=== PATIENT | male | born 1985 | race Caucasian/White ===

== ENCOUNTER 2022-05-15 16:59 | Emergency (ER) | payer MEDICARE, MEDICAID, SELFPAY ==
[2022-05-15 17:05] VITALS: BP 158/100; PULSE 86; O2SAT 99
--- NOTE | 2022-05-15 17:08 | ECG_ITS ---
Test Reason : CHEST PAIN Blood Pressure : / mmHG Vent. Rate : 066 BPM Atrial Rate : 066 BPM P-R Int : 150 ms QRS Dur : 090 ms QT Int : 376 ms P-R-T Axes : 066 049 068 degrees QTc Int : 394 ms Normal sinus rhythm Normal ECG No previous ECGs available Referred By: Generic ED Physician Electronically Signed By:Willam Vogel
[2022-05-15 17:21] VITALS: BP 131/77; PULSE 71; RESP 18; TEMP 36.6; O2SAT 99; BMI 24.4
[2022-05-15 17:38] LABS: Basophils Percent Auto 0.5 % (0-2); Eosinophils Percent Auto 0.4 % (0-4); Hematocrit 32.2 % (42.0-52.0); Hemoglobin 10.5 g/dl (14.0-18.0); Imm Gran Abs Auto 0.01 X10*3/uL (0.00-0.03); Imm Gran Pct Auto 0.2 % (0.0-0.4); Lymphocytes Absolute Auto 1.2 X10*3/uL (1.2-4.9); Lymphocytes Percent Auto 20.6 % (20-40); MANUAL DIFF FLAG NO; Mean Corpuscular HGB Conc 32.6 g/dl (31.0-36.0); Mean Corpuscular Hemoglobin 28.5 pg (27.0-33.0); Mean Corpuscular Volume 87.5 fL (80.0-98.0); Mean Platelet Volume 8.9 fL (9.4-12.4); Monocytes Absolute Auto 0.5 X10*3/uL (0.1-1.2); Monocytes Percent Auto 9.1 % (2-11); Neutrophils Absolute Auto 3.9 x10*3/uL (2.0-8.3); Neutrophils Percent Auto 69.2 % (45-73); Platelet Count 314 X10*3/uL (160-400); Red Blood Count 3.68 X10*6/uL (4.60-5.80); Red Cell Distribution Width 14.5 % (11.0-16.0); White Blood Count 5.7 X10*3/uL (4.8-10.8)
[2022-05-15 17:57] LABS: Alanine Aminotransferase 12 U/L (0-40); Albumin Level 4.3 g/dL (3.5-5.0); Alkaline Phosphatase 67 U/L (39-117); Anion Gap 9 (12-20); Aspartate Amino Transferase 13 U/L (5-37); Blood Urea Nitrogen 13 mg/dL (9-16); Calcium 9.1 mg/dL (8.4-10.2); Carbon Dioxide 27 mmol/L (22-29); Chloride 106 mmol/L (96-108); Creatinine Clr Calc Pharmacy 99.3; Estimated Glomerular Filt Rate > 60; Glucose Random 98 mg/dL (60-115); Potassium 4.2 mmol/L (3.3-5.1); Sodium 138 mmol/L (135-145); Total Protein 7.1 g/dL (6.5-8.0)
[2022-05-15 18:00] LABS: Troponin-I High Sensitivity < 3.5 ng/L (<3.5-35.0)
--- NOTE | 2022-05-15 21:24 | ED_ITS ---
HPI - Dizziness General Chief Complaint: Dizziness Stated Complaint: dizziness Time Seen by Provider: 05/15/22 21:24 Source: patient Mode of arrival: ambulatory Limitations: no limitations History of Present Illness HPI Narrative: Patient been feeling dizzy feel like things spinning around had poor oral intake but was in the house with the condition on no nausea off balanchad similar complaints in the past Related Data Previous Rx's Medication Instructions Recorded meclizine 25 mg tablet 25 mg PO TID PRN dizziness #20 tabs 05/15/22 Allergies Allergy/AdvReac Type Severity Reaction Status Date / Time No Known Allergies Allergy Verified 05/15/22 17:05 Review of Systems Review of Systems: Yes all other systems are reviewed and are negative [facility] Social History Social History Advance Directives: No Advance Directives Information Provided: No Physical Exam Vital Signs: Vital Signs: Last Vital Signs Temp 97.9 F 05/15/22 17:21 Pulse 71 05/15/22 17:21 Resp 18 05/15/22 17:21 BP 131/77 05/15/22 17:21 Pulse Ox 99 05/15/22 17:21 O2 Del Method 05/15/22 17:21 BMI result Body Mass Index 24.4 Appearance: Alert. Oriented X3. No acute distress. Eyes: PERRLA, No Nystagmus ENT: Pharynx normal. Oral Mucosa moist Neck: Normal inspection. Neck supple. CVS: Normal heart rate and rhythm. Pulses normal. Respiratory: No respiratory distress. Equal air entry bilateral, no wheezing/rales/rhonchi Abdomen: Soft and nontender. Bowel sounds are present, no mass palpable, no CVA tenderness Skin: Skin warm and dry. Normal skin color. Normal skin turgor. Extremities: No lower extremity edema. No calf tenderness Neuro: Oriented X 3. No motor deficit. No sensory deficit.No cerebellar signs , cranial nerves II-XII intact MDM - Dizziness MDM Narrative Medical decision making narrative: Patient felt better after meclizine ambulatory in the ER discharge patient home Lab Data Attestation: I reviewed the patient's lab results. Result diagrams: 05/15/22 17:28 05/15/22 17:28 Labs: Lab Results 05/15/22 05/15/22 05/15/22 Range/Units 17:28 17:28 17:28 WBC 5.7 (4.8-10.8) X10*3/uL RBC 3.68 L (4.60-5.80) X10*6/uL Hgb 10.5 L (14.0-18.0) g/dl Hct 32.2 L (42.0-52.0) % MCV 87.5 (80.0-98.0) fL MCH 28.5 (27.0-33.0) pg MCHC 32.6 (31.0-36.0) g/dl RDW 14.5 (11.0-16.0) % Plt Count 314 (160-400) X10*3/uL MPV 8.9 L (9.4-12.4) fL Immature Gran % (Auto) 0.2 (0.0-0.4) % Neut % (Auto) 69.2 (45-73) % Lymph % (Auto) 20.6 (20-40) % Thurston % (Auto) 9.1 (2-11) % Eos % (Auto) 0.4 (0-4) % Baso % (Auto) 0.5 (0-2) % Lymph # (Auto) 1.2 (1.2-4.9) X10*3/uL Thurston # (Auto) 0.5 (0.1-1.2) X10*3/uL Eos # (Auto) 0.0 (0.0-0.4) X10*3/uL Baso # (Auto) 0.0 (0.0-0.2) X10*3/uL Abs Immat Gran (auto) 0.01 (0.00-0.03) X10*3/uL Absolute Neuts (auto) 3.9 (2.0-8.3) x10*3/uL Absolute Nucleated RBC 0.000 (0.0-0.012) X10*3/uL Nucleated RBC % (auto) 0.0 (0.0-0.2) /100WBC Sodium 138 (135-145) mmol/L Potassium 4.2 (3.3-5.1) mmol/L Chloride 106 (96-108) mmol/L Carbon Dioxide 27 (22-29) mmol/L Anion Gap 9 L (12-20) BUN 13 (9-16) mg/dL Creatinine 1.15 (0.5-1.4) mg/dL Estim Creat Clear Calc 99.3 Estimated GFR > 60 Random Glucose 98 (60-115) mg/dL Calcium 9.1 (8.4-10.2) mg/dL Total Bilirubin 1.0 (0.0-1.0) mg/dL AST 13 (5-37) U/L ALT 12 (0-40) U/L Alkaline Phosphatase 67 (39-117) U/L Troponin I High Sens < 3.5 (<3.5-35.0) ng/L Total Protein 7.1 (6.5-8.0) g/dL Albumin 4.3 (3.5-5.0) g/dL Discharge Plan Discharge Clinical Impression: Benign paroxysmal positional vertigo Patient Disposition: Home, Self-Care Instructions: Benign Paroxysmal Positional Vertigo (ED) Additional Instructions: Care as advised Take medication for severe dizziness Follow with PCP Prescriptions: New meclizine 25 mg tablet 25 mg PO TID PRN (Reason: dizziness) Qty: 20 0RF Interventions: ED Discharge Assessment Last Done: 05/15/22 22:41 Discharge Date/Time: 05/15/22 22:42
[2022-05-15] MEDS: Meclizine HCl 25 MG TABLET 50 MG PO (21:49)
--- NOTE | 2022-05-15 21:51 | PC.NURSE ---
pt a&ox3, vss, medicated per provider order, given yogesh kelby and water. pt reports still feeling dizzy.
== END 2022-05-15 22:42 | disposition home or self-care (01) ==
PROVIDERS: Emergency Provider Internal Medicine
DX: H81.13 Benign paroxysmal vertigo, bilateral (principal); R07.89 Other chest pain; Z79.899 Other long term (current) drug therapy
CPT/HCPCS: 36415; 80053; 84484; 85025; 93005; 99283

== ENCOUNTER 2022-05-21 04:26 | Inpatient (IN) | payer MEDICARE, MEDICAID, SELFPAY ==
--- NOTE | 2022-05-21 | EEG_ITS ---
This is a 16-channel EEG with an EKG lead. The patient is reported awake during the tracing. Background EEG rhythm during initial part of the tracing is low amplitude fast. The patient frequently transitioned into generalize theta range medium amplitude rhythm suggestive of drowsiness. No definite sharp wave spikes or paroxysmal tendency noted. Photic stimulation does not produce any significant driving. Hyperventilation is not performed. Cardiac lead does not reveal any significant abnormality. IMPRESSION: No significant abnormality noted to suggest epilepsy in this tracing. MD BRUNA Mays/GINGER / [phone]
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
[2022-05-21 04:36] VITALS: BP 135/85; PULSE 85; RESP 17; TEMP 36.2; O2SAT 100; BMI 23.7
[2022-05-21 05:00] LABS: Appearance Urine CLEAR; Color Urine YELLOW; Glucose Urine UA NEG (NEG); Leukocyte Esterase Urine NEG (NEG); Nitrite Urine NEG (NEG); Specific Gravity - Urine >= 1.030 (1.005-1.025); Urine Blood NEG (NEG); Urine Ketones 5 MG/DL (NEG); Urine Protein NEG (NEG-TRACE)
[2022-05-21 05:15] LABS: Amphetamine Screen Urine Not Detected (Not Detect); Barbiturates, Urine Not Detected (Not Detect); Benzodiazepines Screen Urine Not Detected (Not Detect); COVID-19 Test Negative (Negative); Cannabinoid Screen Urine Not Detected (Not Detect); Cocaine Screen Urine Not Detected (Not Detect); Fentanyl, urine Not Detected (Not Detect); Opiate Screen Urine Not Detected (Not Detect); Phencyclidine Screen Urine Not Detected (Not Detect)
[2022-05-21 05:17] LABS: MANUAL DIFF FLAG NO
[2022-05-21 05:18] LABS: Basophils Absolute Auto 0.1 X10*3/uL (0.0-0.2); Basophils Percent Auto 0.7 % (0-2); Eosinophils Absolute Auto 0.1 X10*3/uL (0.0-0.4); Eosinophils Percent Auto 0.7 % (0-4); Hematocrit 35.7 % (42.0-52.0); Hemoglobin 11.5 g/dl (14.0-18.0); Imm Gran Abs Auto 0.01 X10*3/uL (0.00-0.03); Imm Gran Pct Auto 0.1 % (0.0-0.4); Lymphocytes Absolute Auto 1.4 X10*3/uL (1.2-4.9); Lymphocytes Percent Auto 20.9 % (20-40); Mean Corpuscular HGB Conc 32.2 g/dl (31.0-36.0); Mean Corpuscular Volume 89.9 fL (80.0-98.0); Mean Platelet Volume 8.9 fL (9.4-12.4); Monocytes Absolute Auto 0.6 X10*3/uL (0.1-1.2); Monocytes Percent Auto 8.5 % (2-11); Neutrophils Absolute Auto 4.6 x10*3/uL (2.0-8.3); Neutrophils Percent Auto 69.1 % (45-73); Platelet Count 407 X10*3/uL (160-400); Red Blood Count 3.97 X10*6/uL (4.60-5.80); Red Cell Distribution Width 14.5 % (11.0-16.0); White Blood Count 6.7 X10*3/uL (4.8-10.8)
[2022-05-21 05:44] LABS: Acetaminophen LAB < 1 mcg/mL (<30); Alanine Aminotransferase 13 U/L (0-40); Albumin Level 4.9 g/dL (3.5-5.0); Alkaline Phosphatase 87 U/L (39-117); Anion Gap 12 (12-20); Aspartate Amino Transferase 21 U/L (5-37); Bilirubin Total 0.5 mg/dL (0.0-1.0); Blood Urea Nitrogen 20 mg/dL (9-16); Calcium 9.2 mg/dL (8.4-10.2); Carbon Dioxide 24 mmol/L (22-29); Chloride 109 mmol/L (96-108); Creatinine Clr Calc Pharmacy 87.1; Estimated Glomerular Filt Rate > 60; Ethanol < 10 mg/dL; Glucose Random 79 mg/dL (60-115); Potassium 4.3 mmol/L (3.3-5.1); Salicylate < 5.0 mg/dL (15-30); Sodium 141 mmol/L (135-145); Total Protein 8.5 g/dL (6.5-8.0)
--- NOTE | 2022-05-21 06:00 | PC.NURSE ---
[facility] referral completed/confirmed/pending ETA, med rec completed/pending provider's approval, VSS, behavior non concerning, will continue to monitor.
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
--- NOTE | 2022-05-21 07:40 | PC.NURSE ---
patient appears to remain asleep at present patient appears in no distress.
[2022-05-21 15:00] VITALS: BP 124/76; PULSE 59; RESP 16; TEMP 36.6; O2SAT 100
--- NOTE | 2022-05-21 15:18 | PC.NURSE ---
At approximately 15:00, PT pressed the emergency call button in her room. Staff immediately responded. Within seconds of TW and other staff arriving, PT free-fell to the ground and hit her head on the floor. PT had two seizures, each lasting about a minute each. PT turned on her side and head protected with a pillow. Staff physically supported PT in order to prevent her from injuring herself. Two sets of vitals taken. PT remained after the incident for emotional support.
[2022-05-21] MEDS: LORazepam 2 MG/ML VIAL IM (15:45)
--- NOTE | 2022-05-21 15:46 | P.EN_ITS ---
Event Note Date of Service: 05/21/22 Event Note: pt had seizure on unit and staff witness patient fall to the ground and hit her head; pt had another seizure 3 minutes later. Director Hospice Operations contacted and ordered ativan 2mg IM Pt had another seizure a few minutes later, however this time, she was able to follow directions during seizure and also, patients right arm was not tense. Rapid response called who and MD thought pseudoseizure. Pt says she has hx of seizure disorder and used to be on anti-epileptics but has not been taking them. concern for etoh withdrawal? sent for stat head CT, EEG, neuro consult; ordered prolactin level
--- NOTE | 2022-05-21 15:46 | P.EN_ITS ---
Event Note Date of Service: 05/21/22 Event Note: LEVEL [employer]IAL INSPECTOR AND TESTER called for convulsions. patient was seen on ground, arms and legs adducted and extended with low amplitude tremors as well as rapid blinking. upon entering the room patient turned head and made eye contact with me, then turned back down and continued convulsing. not consistent with epileptic seizure. 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
[2022-05-21 15:47] LABS: Glucose, Whole Blood 118 mg/dL (60-115)
--- NOTE | 2022-05-21 15:47 | PC.NURSE ---
Pt had a witnessed seizure at 1505. Pt placed on their side and all hard objects moved to protect patient. Seizure lasted for approximately 1 minute. Pt verbally responsive to staff after seizure. Pt received Ativan 1mg IM to Left Deltoid at 1520. About two minutes later Patient experienced a second seizure which lasted for approximately a minute. Rapid Response called. Pt received an additional dose of Ativan 1mg to Right deltoid at 1530.
[2022-05-21 17:12] VITALS: BP 135/73; PULSE 62; RESP 16; TEMP 37.2
[2022-05-21 18:02] VITALS: BMI 23.8
[2022-05-21] MEDS: hydrOXYzine HCL 25 MG TABLET PO (22:12)
[2022-05-21] MEDS: Acetaminophen 325 MG TABLET 650 MG PO (22:13)
[2022-05-21] MEDS: traZODone HCL 50 MG TABLET PO (22:13)
[2022-05-22 06:00] VITALS: BP 127/72; PULSE 60; RESP 16; TEMP 36.5; O2SAT 100
[2022-05-22 08:23] LABS: Estimated Average Glucose 94 mg/dL; Hemoglobin A1c % 4.9 %
[2022-05-22 08:53] LABS: Cholesterol 125 mg/dL; HDL Cholesterol 40 mg/dL; LDL Cholesterol Calculated 69 mg/dl; Magnesium 1.8 mg/dL (1.6-2.6); Triglycerides 81 mg/dL
[2022-05-22 09:14] LABS: Free T4 (Free Thyroxine) 0.93 ng/dL (0.71-1.85); Thyroid Stimulating Hormone 0.66 uIU/mL (0.32-4.0)
[2022-05-22 09:28] LABS: Folate 9.7 ng/mL (> or = 4.0); Vitamin B12 309 pg/mL (200-900)
[2022-05-22] MEDS: LORazepam 1 MG TABLET PO ×3 (10:02→22:26)
[2022-05-22] MEDS: Spironolactone 25 MG TABLET 100 MG PO (10:05)
[2022-05-22] MEDS: buPROPion HCl XL 300 MG TAB.ER.24H PO (10:05)
[2022-05-22] MEDS: estradioL 0.5 MG TABLET 2 MG PO (10:05)
--- NOTE | 2022-05-22 11:21 | P.HPPS_ITS ---
HPI Date of Service: 05/22/22 Chief Complaint: Paranoia Hallucinations Sources of Information: patient interviewed, chart reviewed and crisis/core team assessment reviewed HPI Subjective Notes: Islas Warning and Conditional Voluntary Narrative: Patient is a 36-year-old trans gender person, who goes by the name Blank; she has an and intellectual disability, history with DDS and fragile X syndrome; her psychiatric history is currently unclear but not previously known to have psychotic symptoms. Blank presents for disorganized behavior in the community. Patient is a poor historian as she is continually having nonepileptic seizures on the unit is selectively mute. When arriving to floor yesterday, it was was unclear if this was a nonepileptic as patient fell from the chair and hit her head during a staff witnessed seizure; after which, patient nodded yes that she has a history of epilepsy and has been on anti epileptic medications. However during her next seizure several minutes later, patient was communicating with staff during the seizure and it was concluded they are nonepileptic. Rapid response called also diagnosed as nonepileptic seizure. Patient has not provided much history otherwise. EEG ordered Prolactin level ordered Neuro consult ordered Today on the unit, show card writer witness patient having a nonepileptic seizure during which time she communicated with this show card writer, saying uh huh [yes] and shaking her head yes, while having the seizure, to show card writer's question of is the seizure painful. Also while having the seizure patient was willing to follow show card writer's directions and it took a deep breath, held it for 4 seconds and then let it out slowly; patient repeated this to other times. She agreed to Haldol 5 mg Ativan 2 mg and Benadryl to help her calm down. Crisis no reports that patient was brought to the ED, found wandering the neighborhood, knocking on neighbor's doors and saying that someone is trying to cut off her boyfriend's feet. Whom she reported to staff that she got a phone call from her boyfriend that he was at a greenhouse and afraid someone was going to cut his feet so she went to the greenhouse looking for him. She said she saw him in the house screaming but adult health clinical nurse specialist of the house made her leave. Patient did not have insight to understand that her boyfriend was in his own home at this time. Some mention of auditory and visual hallucinations. Past Psychiatric History: hx of [facility] assessments History of nonepileptic seizures with neurological workup and confirmation, per mother Fragile X syndrome Intellectual disability ( Verbal 63 and performance of 56 ) Medical Evaluation Reviewed: Yes [facility] Medical History (Updated 05/22/22 @ 14:00 by Tres Strange MD) Fragile X syndrome Intellectual disability Psychogenic nonepileptic seizure Family History: Family history of depression Social History: Estranged from her mother due to transgender status Currently lives in an independent shared living space with her licensed occupational therapist Neonjuan f (per crisis note); stable housing Grew up in [place] Substance History: unclear Trauma History: Likely Diagnostics Vital Signs (24Hr): Vital Signs - 24 hr 05/21/22 15:00 05/21/22 17:12 Temperature 97.9 F 98.9 F Pulse Rate 59 62 Respiratory Rate 16 16 Blood Pressure 124/76 135/73 Pulse Oximetry 100 Oxygen Delivery Method Room Air BMI result Body Mass Index 23.8 Labs Results: 05/21/22 05:10 05/21/22 05:10 Labs: Laboratory Results - last 48 hr 05/21/22 05/21/22 05/21/22 04:49 04:49 04:49 WBC RBC Hgb Hct MCV MCH MCHC RDW Plt Count MPV Immature Gran % (Auto) Neut % (Auto) Lymph % (Auto) [place] % (Auto) Eos % (Auto) Baso % (Auto) Lymph # (Auto) [place] # (Auto) Eos # (Auto) Baso # (Auto) Abs Immat Gran (auto) Absolute Neuts (auto) Absolute Nucleated RBC Nucleated RBC % (auto) Sodium Potassium Chloride Carbon Dioxide Anion Gap BUN Creatinine Estim Creat Clear Calc Estimated GFR POC Glucose Random Glucose Estimat Average Glucose Hemoglobin A1c % Calcium Magnesium Total Bilirubin AST ALT Alkaline Phosphatase Total Protein Albumin Triglycerides Cholesterol LDL Cholesterol, Calc HDL Cholesterol Vitamin B12 Folate TSH Free T4 Urine Color YELLOW Urine Appearance CLEAR Urine pH 6.0 Ur Specific [place] >= 1.030 H Urine Protein NEG Urine Glucose (UA) NEG Urine Ketones 5 Urine Blood NEG Urine Nitrite NEG Ur Leukocyte Esterase NEG Salicylates Urine Opiates Screen Not Detected Urine Fentanyl Screen Not Detected Acetaminophen Ur Barbiturates Screen Not Detected Ur Phencyclidine Scrn Not Detected Ur Amphetamines Screen Not Detected U Benzodiazepines Scrn Not Detected Urine Cocaine Screen Not Detected U Marijuana (THC) Screen Not Detected Ethyl Alcohol COVID-19 (MAX) Negative COVID-19 Clin Com See Note 05/21/22 05/21/22 05/21/22 05:10 05:10 05:10 WBC 6.7 RBC 3.97 L Hgb 11.5 L Hct 35.7 L MCV 89.9 MCH 29.0 MCHC 32.2 RDW 14.5 Plt Count 407 H D MPV 8.9 L Immature Gran % (Auto) 0.1 Neut % (Auto) 69.1 Lymph % (Auto) 20.9 [place] % (Auto) 8.5 Eos % (Auto) 0.7 Baso % (Auto) 0.7 Lymph # (Auto) 1.4 [place] # (Auto) 0.6 Eos # (Auto) 0.1 Baso # (Auto) 0.1 Abs Immat Gran (auto) 0.01 Absolute Neuts (auto) 4.6 Absolute Nucleated RBC 0.000 Nucleated RBC % (auto) 0.0 Sodium 141 Potassium 4.3 Chloride 109 H Carbon Dioxide 24 Anion Gap 12 BUN 20 H D Creatinine 1.35 Estim Creat Clear Calc 87.1 Estimated GFR > 60 POC Glucose Random Glucose 79 Estimat Average Glucose Hemoglobin A1c % Calcium 9.2 Magnesium Total Bilirubin 0.5 AST 21 D ALT 13 Alkaline Phosphatase 87 D Total Protein 8.5 H Albumin 4.9 Triglycerides Cholesterol LDL Cholesterol, Calc HDL Cholesterol Vitamin B12 Folate TSH Free T4 Urine Color Urine Appearance Urine pH Ur Specific [place] Urine Protein Urine Glucose (UA) Urine Ketones Urine Blood Urine Nitrite Ur Leukocyte Esterase Salicylates < 5.0 L Urine Opiates Screen Urine Fentanyl Screen Acetaminophen < 1 Ur Barbiturates Screen Ur Phencyclidine Scrn Ur Amphetamines Screen U Benzodiazepines Scrn Urine Cocaine Screen U Marijuana (THC) Screen Ethyl Alcohol < 10 Cancelled COVID-19 (MAX) COVID-19 Clin Com 05/21/22 05/22/22 05/22/22 15:22 07:42 07:42 WBC RBC Hgb Hct MCV MCH MCHC RDW Plt Count MPV Immature Gran % (Auto) Neut % (Auto) Lymph % (Auto) [place] % (Auto) Eos % (Auto) Baso % (Auto) Lymph # (Auto) [place] # (Auto) Eos # (Auto) Baso # (Auto) Abs Immat Gran (auto) Absolute Neuts (auto) Absolute Nucleated RBC Nucleated RBC % (auto) Sodium Potassium Chloride Carbon Dioxide Anion Gap BUN Creatinine Estim Creat Clear Calc Estimated GFR POC Glucose 118 H Random Glucose Estimat Average Glucose 94 Hemoglobin A1c % 4.9 Calcium Magnesium 1.8 Total Bilirubin AST ALT Alkaline Phosphatase Total Protein Albumin Triglycerides 81 Cholesterol 125 LDL Cholesterol, Calc 69 HDL Cholesterol 40 Vitamin B12 Folate TSH 0.66 Free T4 0.93 Urine Color Urine Appearance Urine pH Ur Specific [place] Urine Protein Urine Glucose (UA) Urine Ketones Urine Blood Urine Nitrite Ur Leukocyte Esterase Salicylates Urine Opiates Screen Urine Fentanyl Screen Acetaminophen Ur Barbiturates Screen Ur Phencyclidine Scrn Ur Amphetamines Screen U Benzodiazepines Scrn Urine Cocaine Screen U Marijuana (THC) Screen Ethyl Alcohol COVID-19 (MAX) COVID-19 [employer] Com 05/22/22 07:42 WBC RBC Hgb Hct MCV MCH MCHC RDW Plt Count MPV Immature Gran % (Auto) Neut % (Auto) Lymph % (Auto) [place] % (Auto) Eos % (Auto) Baso % (Auto) Lymph # (Auto) [place] # (Auto) Eos # (Auto) Baso # (Auto) Abs Immat Gran (auto) Absolute Neuts (auto) Absolute Nucleated RBC Nucleated RBC % (auto) Sodium Potassium Chloride Carbon Dioxide Anion Gap BUN Creatinine Estim Creat Clear Calc Estimated GFR POC Glucose Random Glucose Estimat Average Glucose Hemoglobin A1c % Calcium Magnesium Total Bilirubin AST ALT Alkaline Phosphatase Total Protein Albumin Triglycerides Cholesterol LDL Cholesterol, Calc HDL Cholesterol Vitamin B12 309 Folate 9.7 TSH Free T4 Urine Color Urine Appearance Urine pH Ur Specific [place] Urine Protein Urine Glucose (UA) Urine Ketones Urine Blood Urine Nitrite Ur Leukocyte Esterase Salicylates Urine Opiates Screen Urine Fentanyl Screen Acetaminophen Ur Barbiturates Screen Ur Phencyclidine Scrn Ur Amphetamines Screen U Benzodiazepines Scrn Urine Cocaine Screen U Marijuana (THC) Screen Ethyl Alcohol COVID-19 (MAX) COVID-19 Clin Com Imaging Radiology Impressions: ITS Impressions Head CT 05/21/22 16:12 IMPRESSION: No acute intracranial pathology. Meds/Allergies Meds Home Medications Medication Instructions Recorded Confirmed Type bupropion HCl 300 mg 24 hr tablet, 1 tab PO DAILY 05/21/22 05/21/22 History extended release estradiol 2 mg tablet 1 tab PO DAILY 05/21/22 05/21/22 History hydroxyzine pamoate 25 mg capsule 1 cap PO DAILY PRN Anxiety 05/21/22 05/21/22 History spironolactone 100 mg tablet 1 tab PO DAILY 05/21/22 05/21/22 History Allergies Allergies Allergy/AdvReac Type Severity Reaction Status Date / Time No Known Allergies Allergy Verified 05/15/22 17:05 Mental Status Exam Mental Status Exam Narrative: Pt is alert;; behavior frequent non-epileptic seizures; disheveled in hospital attire; mood is described as anxious and affect congruent; no eye contact; Speech is Selectively Mute; psychomotor agitation present in the form of nonepileptic seizures; thought process: Disorganized; Thought content disorganized, paranoid delusional content; cannot assess SI/HI. AVH reported; insight and judgment impaired. Assessment & Plan Assessment & Plan (1) Psychotic disorder: Status: Acute Code(s): F29 - Unspecified psychosis not due to a substance or known physiological condition (2) Fragile X syndrome: Status: Acute Code(s): Q99.2 - Fragile X chromosome (3) Intellectual disability: Status: Acute Code(s): F79 - Unspecified intellectual disabilities (4) Psychogenic nonepileptic seizure: Status: Acute Code(s): 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 Blank presents for disorganized behavior in the community. Patient a poor historian as continually having nonepileptic seizures on the unit is selectively mute (patient communicating with staff during seizure-episode). Crisis note reports that patient was brought to the ED, found wandering the neighborhood, knocking on neighbor's doors and saying that someone is trying to cut off her boyfriend's feet. Whom she reported to staff that she got a phone call from her boyfriend that he was at a greenhouse and afraid someone was going to cut his feet so she went to the greenhouse looking for him. She said she saw him in the house screaming but adult health clinical nurse specialist of the house m jad her leave. Patient did not have insight to understand that her boyfriend was in his own home at this time. Some mention of auditory and visual hallucinations. -admitted for disorganized behavior and new-onset psychotic symptoms in the community -patient hit head during pseudo seizure; head CT unremarkable -UDS negative PLAN: CV Currently on one-to-one since having pseudoseizures Gave Haldol 5, Ativan 2, Benadryl 50 for agitation Started Ativan 1 mg t.i.d. for now given agitation Hold Wellbutrin for now Consider antipsychotic/mood stabilizer Will gather collateral Patient educated on: diagnosis Informed Consent: understands Reason for continued inpatient stay Substantial Risk for: inability to function and rapid decompensation
[2022-05-22] MEDS: LORazepam 1 MG TABLET 2 MG PO (12:53)
[2022-05-22] MEDS: diphenhydrAMINE HCL 25 MG TABLET 50 MG PO (12:53)
[2022-05-22] MEDS: HaloperidoL 5 MG TABLET PO (12:53)
[2022-05-22] MEDS: hydrOXYzine HCL 25 MG TABLET PO ×3 (14:37→22:26)
[2022-05-22 15:51] LABS: Appearance Urine CLEAR; Color Urine YELLOW; Glucose Urine UA NEG (NEG); Leukocyte Esterase Urine NEG (NEG); Nitrite Urine NEG (NEG); Specific Gravity - Urine >= 1.030 (1.005-1.025); Urine Blood NEG (NEG); Urine Ketones NEG (NEG); Urine Protein NEG (NEG-TRACE)
[2022-05-22 16:03] LABS: Barbiturates, Urine Not Detected (Not Detect); Benzodiazepines Screen Urine Not Detected (Not Detect); Cannabinoid Screen Urine Not Detected (Not Detect); Cocaine Screen Urine Not Detected (Not Detect); Fentanyl, urine Not Detected (Not Detect); Opiate Screen Urine Not Detected (Not Detect); Phencyclidine Screen Urine Not Detected (Not Detect)
[2022-05-22 16:08] LABS: Amphetamine Screen Urine Not Detected (Not Detect)
[2022-05-22 16:34] LABS: RBC Urine 0-2 /HPF (0); WBC Urine 0-2 /HPF (0-4)
[2022-05-22 16:35] LABS: Mucus Urine 1+ /LPF
[2022-05-22 17:00] VITALS: BP 117/54; PULSE 70; TEMP 36.8
[2022-05-22] MEDS: risperiDONE 1 MG TABLET PO ×2 (19:07→22:26)
[2022-05-23 05:46] LABS: Prolactin 29.3 ng/mL (2.0-18.0)
[2022-05-23] MEDS: Spironolactone 25 MG TABLET 100 MG PO (08:49)
[2022-05-23] MEDS: estradioL 0.5 MG TABLET 2 MG PO (08:50)
[2022-05-23] MEDS: LORazepam 1 MG TABLET PO ×3 (08:50→20:32)
[2022-05-23] MEDS: risperiDONE 1 MG TABLET PO ×2 (08:50→20:32)
[2022-05-23] MEDS: hydrOXYzine HCL 25 MG TABLET PO ×3 (08:50→20:36)
[2022-05-23 09:10] VITALS: PULSE 73; RESP 16; TEMP 36.7; O2SAT 99
--- NOTE | 2022-05-23 10:37 | HO.PSYCHPN ---
Subjective Subjective Date of Service: 05/23/22 Reason For Visit: Paranoia Hallucinations Interim History: Patient lying in bed awake but sleepy, having recently gotten Ativan. She said she has feeling better but cannot articulate how so but feels that the medications have helped; denies any SI. Still concerned that her boyfriend's feet are going to be cut off. No nonepileptic seizures thus far today; discussed with patient getting off one-to-one and going to Q 5 minute checks which she felt was appropriate. Discussed with nursing staff who also agreed. Mental Status Exam Mental Status Exam Narrative: Pt is alert;; behavior more calm; non non-epileptic seizures; disheveled, in hospital attire; mood is described as better and affect sleepy,but brighter; limited eye contact; Speech is sparse; psychomotor retardation present; thought process, more goal oriented; Thought content disorganized, paranoid delusional content; denies SI/HI. AVH reported; insight and judgment impaired. Diagnostics Vital Signs (24Hr): Vital Signs - 24 hr 05/22/22 17:00 05/23/22 09:10 Temperature 98.2 F 98.1 F Pulse Rate 70 73 Respiratory Rate 16 Blood Pressure 117/54 L Pulse Oximetry 99 Oxygen Delivery Method Room Air BMI result Body Mass Index 23.8 Labs Results: 05/21/22 05:10 05/21/22 05:10 Labs: Laboratory Results - last 48 hr 05/21/22 05/21/22 05/22/22 15:22 16:45 07:42 POC Glucose 118 H Estimat Average Glucose 94 Hemoglobin A1c % 4.9 Magnesium Triglycerides Cholesterol LDL Cholesterol, Calc HDL Cholesterol Vitamin B12 Folate TSH Free T4 Prolactin 29.3 H Urine Color Urine Appearance Urine pH Ur Specific [place] Urine Protein Urine Glucose (UA) Urine Ketones Urine Blood Urine Nitrite Ur Leukocyte Esterase Urine RBC Urine WBC Ur Squamous Epith Cells Urine Bacteria Urine Mucus Urine Opiates Screen Urine Fentanyl Screen Ur Barbiturates Screen Ur Phencyclidine Scrn Ur Amphetamines Screen U Benzodiazepines Scrn Urine Cocaine Screen U Marijuana (THC) Screen 05/22/22 05/22/22 05/22/22 07:42 07:42 15:10 POC Glucose Estimat Average Glucose Hemoglobin A1c % Magnesium 1.8 Triglycerides 81 Cholesterol 125 LDL Cholesterol, Calc 69 HDL Cholesterol 40 Vitamin B12 309 Folate 9.7 TSH 0.66 Free T4 0.93 Prolactin Urine Color Urine Appearance Urine pH Ur Specific [place] Urine Protein Urine Glucose (UA) Urine Ketones Urine Blood Urine Nitrite Ur Leukocyte Esterase Urine RBC Urine WBC Ur Squamous Epith Cells Urine Bacteria Urine Mucus Urine Opiates Screen Not Detected Urine Fentanyl Screen Not Detected Ur Barbiturates Screen Not Detected Ur Phencyclidine Scrn Not Detected Ur Amphetamines Screen Not Detected U Benzodiazepines Scrn Not Detected Urine Cocaine Screen Not Detected U Marijuana (THC) Screen Not Detected 05/22/22 15:10 POC Glucose Estimat Average Glucose Hemoglobin A1c % Magnesium Triglycerides Cholesterol LDL Cholesterol, Calc HDL Cholesterol Vitamin B12 Folate TSH Free T4 Prolactin Urine Color YELLOW Urine Appearance CLEAR Urine pH 6.0 Ur Specific [place] >= 1.030 H Urine Protein NEG Urine Glucose (UA) NEG Urine Ketones NEG Urine Blood NEG Urine Nitrite NEG Ur Leukocyte Esterase NEG Urine RBC 0-2 Urine WBC 0-2 Ur Squamous Epith Cells NONE Urine Bacteria NONE Urine Mucus 1+ Urine Opiates Screen Urine Fentanyl Screen Ur Barbiturates Screen Ur Phencyclidine Scrn Ur Amphetamines Screen U Benzodiazepines Scrn Urine Cocaine Screen U Marijuana (THC) Screen Imaging Radiology Impressions: ITS Impressions Head CT 05/21/22 16:12 IMPRESSION: No acute intracranial pathology. Medications Medications Current Medications Acetaminophen (Acetaminophen 325 Mg Tablet) 650 mg PO Q6H PRN PRN Reason: Headache/Pain Mild Scale (1-3) Last Admin: 05/21/22 22:13 Dose: 650 mg Al Hydroxide/Mg Hydroxide (Magnesium Hydrox/Alum Hydrox 30 Ml Oral.Susp) 30 ml PO Q6H PRN PRN Reason: Heartburn/Nausea Diphenhydramine HCl (Diphenhydramine Hcl 25 Mg Tablet) 50 mg PO Q4H PRN PRN Reason: agitation Last Admin: 05/22/22 12:53 Dose: 50 mg Estradiol (Estradiol 0.5 Mg Tablet) 2 mg PO DAILY LEANNE Last Admin: 05/23/22 08:50 Dose: 2 mg Haloperidol (Haloperidol 5 Mg Tablet) 5 mg PO Q4H PRN PRN Reason: agitation Last Admin: 05/22/22 12:53 Dose: 5 mg Hydroxyzine HCl (Hydroxyzine Hcl 25 Mg Tablet) 25 mg PO DAILY PRN PRN Reason: Anxiety Last Admin: 05/21/22 22:12 Dose: 25 mg Hydroxyzine HCl (Hydroxyzine Hcl 25 Mg Tablet) 25 mg PO Q4H LEANNE Last Admin: 05/23/22 08:50 Dose: 25 mg Lorazepam (Lorazepam 1 Mg Tablet) 1 mg PO TID LEANNE Last Admin: 05/23/22 08:50 Dose: 1 mg Lorazepam (Lorazepam 1 Mg Tablet) 2 mg PO Q4H PRN PRN Reason: agitation Last Admin: 05/22/22 12:53 Dose: 2 mg Magnesium Hydroxide (Milk Of Magnesia 30 Ml Oral.Susp) 30 ml PO DAILY PRN PRN Reason: Constipation Risperidone (Risperidone 1 Mg Tablet) 1 mg PO BID [facility] Last Admin: 05/23/22 08:50 Dose: 1 mg Spironolactone (Spironolactone 25 Mg Tablet) 100 mg PO DAILY [facility]; Protocol Last Admin: 05/23/22 08:49 Dose: 100 mg Trazodone HCl (Trazodone Hcl 50 Mg Tablet) 50 mg PO BEDTIME PRN PRN Reason: Insomnia Last Admin: 05/21/22 22:13 Dose: 50 mg Allergies Allergies Allergy/AdvReac Type Severity Reaction Status Date / Time No Known Allergies Allergy Verified 05/15/22 17:05 Assessment & Plan Assessment & Plan (1) Psychotic disorder: Status: Acute Code(s): F29 - Unspecified psychosis not due to a substance or known physiological condition (2) Fragile X syndrome: Status: Acute Code(s): Q99.2 - Fragile X chromosome (3) Intellectual disability: Status: Acute Code(s): F79 - Unspecified intellectual disabilities (4) Psychogenic nonepileptic seizure: Status: Acute Code(s): 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 Blank presents for disorganized behavior in the community. Patient a poor historian as continually having nonepileptic seizures on the unit is selectively mute (patient communicating with staff during seizure-episode). Crisis note reports that patient was brought to the ED, found wandering the neighborhood, knocking on neighbor's doors and saying that someone is trying to cut off her boyfriend's feet. Whom she reported to staff that she got a phone call from her boyfriend that he was at a greenhouse and afraid someone was going to cut his feet so she went to the greenhouse looking for him. She said she saw him in the house screaming but carpenter and joiner of the house made her leave. Patient did not have insight to understand that her boyfriend was in his own home at this time. Some mention of auditory and visual hallucinations. -admitted for disorganized behavior and new-onset psychotic symptoms in the community -patient hit head during pseudo seizure; head CT unremarkable -UDS negative Differential/thought process -Currently still unclear as to what is going on with patient. Patient remains with delusional thoughts. Reportedly there is no other history at all of psychotic symptoms. -Maybe some hx of manic behavior? Mother reports that for a few months while living there, patient would leave at 3 in the morning and get back at 1 in the morning every night. -UDS done late but negative for drug abuse; patient has no history of drug abuse. However there have been some concerns for explantation in the community though this is not confirmed -nonepileptic seizures HOWEVER patient has fragile X syndrome which carries risk of seizure disorder; EEG done; need to r/o actual epileptic seizures as it's possible for patient have both epileptic and nonepileptic PLAN: CV q 5 min checks (has not been having non-epileptic seizures) EEG results pending Started on Risperdal 1 mg b.i.d. Ativan being tapered; (started due to frequent nonepileptic seizures) Holding Wellbutrin for now Will continue to gather collateral I spent minutes with the patient and/or on the patient floor today, greater than?50% of which was spent counseling/coordinating care. Informed Consent: further education needed Reason for contiued inpatient stay Substantial Risk for: rapid decompensation
[2022-05-23 18:00] VITALS: BP 121/61; PULSE 83; TEMP 37; O2SAT 99
[2022-05-24] MEDS: hydrOXYzine HCL 25 MG TABLET PO ×4 (06:47→20:34)
[2022-05-24] MEDS: estradioL 0.5 MG TABLET 2 MG PO (09:44)
[2022-05-24] MEDS: risperiDONE 1 MG TABLET PO ×2 (09:45→20:34)
[2022-05-24] MEDS: Spironolactone 25 MG TABLET 100 MG PO (09:46)
[2022-05-24] MEDS: LORazepam 1 MG TABLET PO ×2 (09:46→20:34)
--- NOTE | 2022-05-24 11:33 | PC.NURSE ---
09:30 Pt. rang the emergency gray in the bathroom in her room. Upon staff arrival to the room pt. was noted to be flailing on the bed. This behavior continued approximately 10 seconds. Pt. was noted to be wearing a very short skirt and had no undergarments and patient's genitals were exposed. Immediately following this pt. was given a pair of leggings by TW and requested that pt. wear the leggings under the skirt. Pt. was also informed that exposing their genitals intentionally would not be considered appropriate behavior.
[2022-05-24 11:57] VITALS: BP 120/80; PULSE 82; RESP 18; TEMP 36.6; O2SAT 99
--- NOTE | 2022-05-24 19:20 | P.PNPSI_ITS ---
Subjective Subjective Date of Service: 05/24/22 Reason For Visit: Paranoia Hallucinations Subjective Notes: Conditional Voluntary Interim History: Blank is pleasant, more visable with peers, appears relaxed, talkative. Wanting to discuss discharge. Team reports good alliance. Intermittent pseudoseizure activity. Needing supportive limits on boundaries, self-protection and self-exposure. Appears to respond well to support, collaboration Medication Compliance: Yes Side effects from medications: No Attending Groups: Yes Review of Systems Acute medical concerns: No Medical Review of Systems: unchanged Mental Status Exam Mental Status Exam Narrative: Pt is alert;; behavior more calm; non non-epileptic seizures; disheveled, in hospital attire; mood is described as better and affect sleepy,but brighter; limited eye contact; Speech is sparse; psychomotor retardation present; thought process, more goal oriented; Thought content disorganized, paranoid delusional content; denies SI/HI. AVH reported; insight and judgment impaired. Diagnostics Vital Signs (24Hr): Vital Signs - 24 hr 05/24/22 11:57 Temperature 97.8 F Pulse Rate 82 Respiratory Rate 18 Blood Pressure 120/80 Pulse Oximetry 99 Oxygen Delivery Method Room Air BMI result Body Mass Index 23.8 Labs Results: 05/21/22 05:10 05/21/22 05:10 Labs: Laboratory Results - last 48 hr 05/21/22 16:45 Prolactin 29.3 H Imaging Radiology Impressions: ITS Impressions Head CT 05/21/22 16:12 IMPRESSION: No acute intracranial pathology. Medications Medications Current Medications Acetaminophen (Acetaminophen 325 Mg Tablet) 650 mg PO Q6H PRN PRN Reason: Headache/Pain Mild Scale (1-3) Last Admin: 05/21/22 22:13 Dose: 650 mg Al Hydroxide/Mg Hydroxide (Magnesium Hydrox/Alum Hydrox 30 Ml Oral.Susp) 30 ml PO Q6H PRN PRN Reason: Heartburn/Nausea Diphenhydramine HCl (Diphenhydramine Hcl 25 Mg Tablet) 50 mg PO Q4H PRN PRN Reason: agitation Last Admin: 05/22/22 12:53 Dose: 50 mg Estradiol (Estradiol 0.5 Mg Tablet) 2 mg PO DAILY LEANNE Last Admin: 05/24/22 09:44 Dose: 2 mg Haloperidol (Haloperidol 5 Mg Tablet) 5 mg PO Q4H PRN PRN Reason: agitation Last Admin: 05/22/22 12:53 Dose: 5 mg Hydroxyzine HCl (Hydroxyzine Hcl 25 Mg Tablet) 25 mg PO DAILY PRN PRN Reason: Anxiety Last Admin: 05/21/22 22:12 Dose: 25 mg Hydroxyzine HCl (Hydroxyzine Hcl 25 Mg Tablet) 25 mg PO Q4H LEANNE Last Admin: 05/24/22 17:51 Dose: Not Given Lorazepam (Lorazepam 1 Mg Tablet) 2 mg PO Q4H PRN PRN Reason: agitation Last Admin: 05/22/22 12:53 Dose: 2 mg Lorazepam (Lorazepam 1 Mg Tablet) 1 mg PO BID LEANNE Stop: 05/24/22 23:50 Last Admin: 05/24/22 09:46 Dose: 1 mg Lorazepam (Lorazepam 1 Mg Tablet) 1 mg PO DAILY LEANNE Stop: 05/26/22 23:50 Magnesium Hydroxide (Milk Of Magnesia 30 Ml Oral.Susp) 30 ml PO DAILY PRN PRN Reason: Constipation Risperidone (Risperidone 1 Mg Tablet) 1 mg PO BID LEANNE Last Admin: 05/24/22 09:45 Dose: 1 mg Spironolactone (Spironolactone 25 Mg Tablet) 100 mg PO DAILY LEANNE; Protocol Last Admin: 05/24/22 09:46 Dose: 100 mg Trazodone HCl (Trazodone Hcl 50 Mg Tablet) 50 mg PO BEDTIME PRN PRN Reason: Insomnia Last Admin: 05/21/22 22:13 Dose: 50 mg Allergies Allergies Allergy/AdvReac Type Severity Reaction Status Date / Time No Known Allergies Allergy Verified 05/15/22 17:05 Assessment & Plan Assessment & Plan (1) Psychotic disorder: Status: Acute Code(s): F29 - Unspecified psychosis not due to a substance or known physiological condition (2) Fragile X syndrome: Status: Acute Code(s): Q99.2 - Fragile X chromosome (3) Intellectual disability: Status: Acute Code(s): F79 - Unspecified intellectual disabilities (4) Psychogenic nonepileptic seizure: Status: Acute Code(s): 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 Blank presents for disorganized behavior in the community. Patient a poor historian as continually having nonepileptic seizures on the unit is selectively mute (patient communicating with staff during seizure-episode). Crisis note reports that patient was brought to the ED, found wandering the neighborhood, knocking on neighbor's doors and saying that someone is trying to cut off her boyfriend's feet. Whom she reported to staff that she got a phone call from her boyfriend that he was at a greenhouse and afraid someone was going to cut his feet so she went to the greenhouse looking for him. She said she saw him in the house screaming but glazier structural glass of the house made her leave. Patient did not have insight to understand that her boyfriend was in his own home at this time. Some mention of auditory and visual hallucinations. -admitted for disorganized behavior and new-onset psychotic symptoms in the community -patient hit head during pseudo seizure; head CT unremarkable -UDS negative Differential/thought process -Currently still unclear as to what is going on with patient. Patient remains with delusional thoughts. Reportedly there is no other history at all of psychotic symptoms. -Maybe some hx of manic behavior? Mother reports that for a few months while living there, patient would leave at 3 in the morning and get back at 1 in the morning every night. -UDS done late but negative for drug abuse; patient has no history of drug abuse. However there have been some concerns for explantation in the community though this is not confirmed -nonepileptic seizures HOWEVER patient has fragile X syndrome which carries risk of seizure disorder; EEG done; need to r/o actual epileptic seizures as it's possible for patient have both epileptic and nonepileptic PLAN: CV q 5 min checks (has not been having non-epileptic seizures) EEG results pending Started on Risperdal 1 mg b.i.d. Ativan being tapered; (started due to frequent nonepileptic seizures) Holding Wellbutrin for now Will continue to gather collateral 05/24/22- Continue current plan. I spent minutes with the patient and/or on the patient floor today, greater than?50% of which was spent counseling/coordinating care. Patient educated on: therapeutic strategies Informed Consent: further education needed Reason for contiued inpatient stay Substantial Risk for: harm to self, inability to function and rapid decompensation
[2022-05-25 08:30] VITALS: BP 136/80; PULSE 83; RESP 16; TEMP 36.2; O2SAT 100
[2022-05-25] MEDS: estradioL 0.5 MG TABLET 2 MG PO (08:59)
[2022-05-25] MEDS: Spironolactone 25 MG TABLET 100 MG PO (08:59)
[2022-05-25] MEDS: LORazepam 1 MG TABLET PO (09:00)
[2022-05-25] MEDS: risperiDONE 1 MG TABLET PO ×2 (09:00→20:33)
[2022-05-25] MEDS: hydrOXYzine HCL 25 MG TABLET PO ×4 (09:00→20:33)
[2022-05-25 18:00] VITALS: BP 118/79; PULSE 89; RESP 16; TEMP 36.6; O2SAT 99
--- NOTE | 2022-05-25 20:20 | HO.PSYCHPN ---
Subjective Subjective Date of Service: 05/25/22 Reason For Visit: Paranoia Hallucinations Subjective Notes: Islas Warning and Conditional Voluntary Healthcare Proxy: No Guardianship: No Medical Problems Affecting Mental Status: No Interim History: Patient seen and discussed with team. Patient evaluated today and upon interview pt reports I feel fine, says she fell asleep real good. Appetite is good. Reports shaking which she attributes to PNES, seizure activity typically lasts 4-5 minutes, not observed by T/W. Reviewed EEG from 05/21/22: No significant abnormality noted to suggest epilepsy in this tracing. Says I feel good with risperdal. Denies AH. Denies paranoia. Denies anxiety. Energy is okay. No physical health complaints.? In the milieu, patient is safe but mostly isolative, withdrawn. Medication Compliance: Yes Side effects from medications: No Attending Groups: Intermittent Review of Systems Acute medical concerns: No Medical Review of Systems: unchanged Mental Status Exam Mental Status Exam Narrative: Pt is alert; behavior more calm; non non-epileptic seizures; disheveled, casual attire, gender affirming; mood is described as good and affect sleepy, but brighter; limited eye contact; Speech is sparse;? psychomotor retardation present; thought process, more goal oriented; Thought content disorganized, paranoid delusional content; denies SI/HI. AVH reported; insight and judgment impaired. Diagnostics Vital Signs (24Hr): Vital Signs - 24 hr 05/25/22 18:00 05/26/22 06:00 Temperature 97.9 F Pulse Rate 89 74 Respiratory Rate 16 18 Blood Pressure 118/79 122/69 Pulse Oximetry 99 Oxygen Delivery Method Room Air BMI result Body Mass Index 23.8 Labs Results: 05/21/22 05:10 05/21/22 05:10 Imaging Radiology Impressions: ITS Impressions Head CT 05/21/22 16:12 IMPRESSION: No acute intracranial pathology. Medications Medications Current Medications Acetaminophen (Acetaminophen 325 Mg Tablet) 650 mg PO Q6H PRN PRN Reason: Headache/Pain Mild Scale (1-3) Last Admin: 05/21/22 22:13 Dose: 650 mg Al Hydroxide/Mg Hydroxide (Magnesium Hydrox/Alum Hydrox 30 Ml Oral.Susp) 30 ml PO Q6H PRN PRN Reason: Heartburn/Nausea Diphenhydramine HCl (Diphenhydramine Hcl 25 Mg Tablet) 50 mg PO Q4H PRN PRN Reason: agitation Last Admin: 05/22/22 12:53 Dose: 50 mg Estradiol (Estradiol 0.5 Mg Tablet) 2 mg PO DAILY LEANNE Last Admin: 05/26/22 09:06 Dose: 2 mg Haloperidol (Haloperidol 5 Mg Tablet) 5 mg PO Q4H PRN PRN Reason: agitation Last Admin: 05/22/22 12:53 Dose: 5 mg Hydroxyzine HCl (Hydroxyzine Hcl 25 Mg Tablet) 25 mg PO DAILY PRN PRN Reason: Anxiety Last Admin: 05/25/22 20:33 Dose: 25 mg Hydroxyzine HCl (Hydroxyzine Hcl 25 Mg Tablet) 25 mg PO Q4H LEANNE Last Admin: 05/26/22 09:07 Dose: 25 mg Lorazepam (Lorazepam 1 Mg Tablet) 2 mg PO Q4H PRN PRN Reason: agitation Last Admin: 05/22/22 12:53 Dose: 2 mg Lorazepam (Lorazepam 1 Mg Tablet) 1 mg PO DAILY LEANNE Stop: 05/26/22 23:50 Last Admin: 05/26/22 09:07 Dose: 1 mg Magnesium Hydroxide (Milk Of Magnesia 30 Ml Oral.Susp) 30 ml PO DAILY PRN PRN Reason: Constipation Risperidone (Risperidone 1 Mg Tablet) 1 mg PO BID LEANNE Last Admin: 05/26/22 09:07 Dose: 1 mg Spironolactone (Spironolactone 25 Mg Tablet) 100 mg PO DAILY LEANNE; Protocol Last Admin: 05/26/22 09:06 Dose: 100 mg Trazodone HCl (Trazodone Hcl 50 Mg Tablet) 50 mg PO BEDTIME PRN PRN Reason: Insomnia Last Admin: 05/25/22 20:33 Dose: 50 mg Allergies Allergies Allergy/AdvReac Type Severity Reaction Status Date / Time No Known Allergies Allergy Verified 05/15/22 17:05 Assessment & Plan Assessment & Plan (1) Psychotic disorder: Status: Acute Code(s): F29 - Unspecified psychosis not due to a substance or known physiological condition (2) Fragile X syndrome: Status: Acute Code(s): Q99.2 - Fragile X chromosome (3) Intellectual disability: Status: Acute Code(s): F79 - Unspecified intellectual disabilities (4) Psychogenic nonepileptic seizure: Status: Acute Code(s): 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 Blank presents for disorganized behavior in the community. Patient a poor historian as continually having nonepileptic seizures on the unit is selectively mute (patient communicating with staff during seizure-episode). Crisis note reports that patient was brought to the ED, found wandering the neighborhood, knocking on neighbor's doors and saying that someone is trying to cut off her boyfriend's feet. Whom she reported to staff that she got a phone call from her boyfriend that he was at a greenhouse and afraid someone was going to cut his feet so she went to the greenhouse looking for him. She said she saw him in the house screaming but hotel supplies salesperson of the house made her leave. Patient did not have insight to understand that her boyfriend was in his own home at this time. Some mention of auditory and visual hallucinations. -admitted for disorganized behavior and new-onset psychotic symptoms in the community -patient hit head during pseudo seizure; head CT unremarkable -UDS negative Differential/thought process -Currently still unclear as to what is going on with patient. Patient remains with delusional thoughts. Reportedly there is no other history at all of psychotic symptoms. -Maybe some hx of manic behavior? Mother reports that for a few months while living there, patient would leave at 3 in the morning and get back at 1 in the morning every night. -UDS done late but negative for drug abuse; patient has no history of drug abuse. However there have been some concerns for explantation in the community though this is not confirmed -nonepileptic seizures HOWEVER patient has fragile X syndrome which carries risk of seizure disorder; EEG done; need to r/o actual epileptic seizures as it's possible for patient have both epileptic and nonepileptic PLAN: CV q 5 min checks (has not been having non-epileptic seizures) EEG results pending Started on Risperdal 1 mg b.i.d. Ativan being tapered; (started due to frequent nonepileptic seizures) Holding Wellbutrin for now Will continue to gather collateral 05/24/22- Continue current plan. 05/25/22- reviewed EEG, no plans to medication, pt is pleasantly psychotic I spent minutes with the patient and/or on the patient floor today, greater than?50% of which was spent counseling/coordinating care. Patient educated on: diagnosis, medication risk/benefits, therapeutic strategies and other Reason for contiued inpatient stay Substantial Risk for: med/psych decompensation
[2022-05-25] MEDS: traZODone HCL 50 MG TABLET PO (20:33)
[2022-05-26 06:00] VITALS: BP 122/69; PULSE 74; RESP 18
[2022-05-26] MEDS: Spironolactone 25 MG TABLET 100 MG PO (09:06)
[2022-05-26] MEDS: estradioL 0.5 MG TABLET 2 MG PO (09:06)
[2022-05-26] MEDS: hydrOXYzine HCL 25 MG TABLET PO ×4 (09:07→22:56)
[2022-05-26] MEDS: LORazepam 1 MG TABLET PO (09:07)
[2022-05-26] MEDS: risperiDONE 1 MG TABLET PO ×2 (09:07→19:38)
--- NOTE | 2022-05-26 10:20 | P.PNPSI_ITS ---
Subjective Subjective Date of Service: 05/26/22 Reason For Visit: Paranoia Hallucinations Interim History: Patient seen and discussed with team. Patient evaluated today and upon interview mood is great, says she slept well, appetite is good, meds are okay, doesnt want med changes. In the milieu, patient is safe but mostly isolative, pleasant. Medication Compliance: Yes Side effects from medications: No Attending Groups: Intermittent Review of Systems Acute medical concerns: No Medical Review of Systems: unchanged Mental Status Exam Mental Status Exam Narrative: Pt is alert; behavior more calm; non non-epileptic seizures; disheveled, casual attire, gender affirming; mood is described as good and affect sleepy, but brighter; limited eye contact; Speech is sparse;? psychomotor retardation present; thought process, more goal oriented; Thought content disorganized, paranoid delusional content; denies SI/HI. AVH reported; insight and judgment impaired. Diagnostics Vital Signs (24Hr): Vital Signs - 24 hr 05/25/22 18:00 05/26/22 06:00 Temperature 97.9 F Pulse Rate 89 74 Respiratory Rate 16 18 Blood Pressure 118/79 122/69 Pulse Oximetry 99 Oxygen Delivery Method Room Air BMI result Body Mass Index 23.8 Labs Results: 05/21/22 05:10 05/21/22 05:10 Imaging Radiology Impressions: ITS Impressions Head CT 05/21/22 16:12 IMPRESSION: No acute intracranial pathology. Medications Medications Current Medications Acetaminophen (Acetaminophen 325 Mg Tablet) 650 mg PO Q6H PRN PRN Reason: Headache/Pain Mild Scale (1-3) Last Admin: 05/21/22 22:13 Dose: 650 mg Al Hydroxide/Mg Hydroxide (Magnesium Hydrox/Alum Hydrox 30 Ml Oral.Susp) 30 ml PO Q6H PRN PRN Reason: Heartburn/Nausea Diphenhydramine HCl (Diphenhydramine Hcl 25 Mg Tablet) 50 mg PO Q4H PRN PRN Reason: agitation Last Admin: 05/22/22 12:53 Dose: 50 mg Estradiol (Estradiol 0.5 Mg Tablet) 2 mg PO DAILY LEANNE Last Admin: 05/26/22 09:06 Dose: 2 mg Haloperidol (Haloperidol 5 Mg Tablet) 5 mg PO Q4H PRN PRN Reason: agitation Last Admin: 05/22/22 12:53 Dose: 5 mg Hydroxyzine HCl (Hydroxyzine Hcl 25 Mg Tablet) 25 mg PO DAILY PRN PRN Reason: Anxiety Last Admin: 05/25/22 20:33 Dose: 25 mg Hydroxyzine HCl (Hydroxyzine Hcl 25 Mg Tablet) 25 mg PO Q4H LEANNE Last Admin: 05/26/22 09:07 Dose: 25 mg Lorazepam (Lorazepam 1 Mg Tablet) 2 mg PO Q4H PRN PRN Reason: agitation Last Admin: 05/22/22 12:53 Dose: 2 mg Lorazepam (Lorazepam 1 Mg Tablet) 1 mg PO DAILY LEANNE Stop: 05/26/22 23:50 Last Admin: 05/26/22 09:07 Dose: 1 mg Magnesium Hydroxide (Milk Of Magnesia 30 Ml Oral.Susp) 30 ml PO DAILY PRN PRN Reason: Constipation Risperidone (Risperidone 1 Mg Tablet) 1 mg PO BID LEANNE Last Admin: 05/26/22 09:07 Dose: 1 mg Spironolactone (Spironolactone 25 Mg Tablet) 100 mg PO DAILY LEANNE; Protocol Last Admin: 05/26/22 09:06 Dose: 100 mg Trazodone HCl (Trazodone Hcl 50 Mg Tablet) 50 mg PO BEDTIME PRN PRN Reason: Insomnia Last Admin: 05/25/22 20:33 Dose: 50 mg Allergies Allergies Allergy/AdvReac Type Severity Reaction Status Date / Time No Known Allergies Allergy Verified 05/15/22 17:05 Assessment & Plan Assessment & Plan (1) Psychotic disorder: Status: Acute Code(s): F29 - Unspecified psychosis not due to a substance or known physiological condition (2) Fragile X syndrome: Status: Acute Code(s): Q99.2 - Fragile X chromosome (3) Intellectual disability: Status: Acute Code(s): F79 - Unspecified intellectual disabilities (4) Psychogenic nonepileptic seizure: Status: Acute Code(s): 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 Blank presents for disorganized behavior in the community. Patient a poor historian as continually having nonepileptic seizures on the unit is selectively mute (patient communicating with staff during seizure-episode). Crisis note reports that patient was brought to the ED, found wandering the neighborhood, knocking on neighbor's doors and saying that someone is trying to cut off her boyfriend's feet. Whom she reported to staff that she got a phone call from her boyfriend that he was at a greenhouse and afraid someone was going to cut his feet so she went to the greenhouse looking for him. She said she saw him in the house screaming but special forces weapons sergeant of the house made her leave. Patient did not have insight to understand that her boyfriend was in his own home at this time. Some mention of auditory and visual hallucinations. -admitted for disorganized behavior and new-onset psychotic symptoms in the community -patient hit head during pseudo seizure; head CT unremarkable -UDS negative Differential/thought process -Currently still unclear as to what is going on with patient. Patient remains with delusional thoughts. Reportedly there is no other history at all of psychotic symptoms. -Maybe some hx of manic behavior? Mother reports that for a few months while living there, patient would leave at 3 in the morning and get back at 1 in the morning every night. -UDS done late but negative for drug abuse; patient has no history of drug abuse. However there have been some concerns for explantation in the community though this is not confirmed -nonepileptic seizures HOWEVER patient has fragile X syndrome which carries risk of seizure disorder; EEG done; need to r/o actual epileptic seizures as it's possible for patient have both epileptic and nonepileptic PLAN: CV q 5 min checks (has not been having non-epileptic seizures) EEG results pending Started on Risperdal 1 mg b.i.d. Ativan being tapered; (started due to frequent nonepileptic seizures) Holding Wellbutrin for now Will continue to gather collateral 05/24/22- Continue current plan. 05/25/22- reviewed EEG, no plans to medication, pt is pleasantly psychotic 05/26/22- no changes, no behavioral or mood concerns I spent minutes with the patient and/or on the patient floor today, greater than?50% of which was spent counseling/coordinating care. Reason for contiued inpatient stay Substantial Risk for: med/psych decompensation
[2022-05-26 18:00] VITALS: BP 120/78; PULSE 79; RESP 16; TEMP 36.6; O2SAT 98
[2022-05-27] MEDS: hydrOXYzine HCL 25 MG TABLET PO ×5 (05:19→22:44)
[2022-05-27] MEDS: risperiDONE 1 MG TABLET PO ×2 (08:02→22:44)
[2022-05-27] MEDS: estradioL 0.5 MG TABLET 2 MG PO (08:02)
[2022-05-27] MEDS: Spironolactone 25 MG TABLET 100 MG PO (08:02)
[2022-05-27 08:05] VITALS: BP 140/85; PULSE 91
[2022-05-27] MEDS: LORazepam 1 MG TABLET 2 MG PO (09:19)
[2022-05-27] MEDS: HaloperidoL 5 MG TABLET PO (09:19)
[2022-05-27] MEDS: diphenhydrAMINE HCL 25 MG TABLET 50 MG PO (09:20)
--- NOTE | 2022-05-27 16:41 | P.PNPSI_ITS ---
Subjective Subjective Date of Service: 05/27/22 Reason For Visit: Paranoia Hallucinations Subjective Notes: Conditional Voluntary Healthcare Proxy: No Guardianship: No Medical Problems Affecting Mental Status: No Interim History: Emiliana is smiling, pleasant, interactive, appearing more comfortable on the unit-approaches tw for questions, dialogue. Discharge planned for 05/28/22 which she is pleased with. Denies current concerns. Denies SI. Met with pt and Mary Kay COONEY. Encouraged when discharged to remain in her home at night and ask for help if needed vs going out to look for support. She verbalized agreement and understanding. Medication Compliance: Yes Side effects from medications: No Attending Groups: Intermittent Review of Systems Acute medical concerns: No Medical Review of Systems: unchanged Review of Systems Psychiatric: Reports no additional psychiatric complaints Mental Status Exam Mental Status Exam Patient Appearance: Appropriate Patient Orientation: Person, Place and Situation Level of Consciousness: Alert Patient Behavior: Appropriate, Talkative and Distractible Mood Description: Constricted Affect Description: Constricted Patient Cognition Impaired: Yes Ability to Follow Directions: Good Speech Pattern: Difficulty Finding Words, Spontaneous Speech, Soft-Spoken, Delayed and Long Pauses Memory Description: Episodic Impaired Hallucinations: None (denied) Delusions: Paranoid Ideation Thought Process: Distracted and Slowed Thinking Thought Content: positive for [place], positive for Slowed Thinking and positive for Suicidal Ideation (denies) Depressive Symptoms: Crying Spells Judgement: Fair Diagnostics Vital Signs (24Hr): Vital Signs - 24 hr 05/26/22 18:00 05/27/22 08:05 Temperature 98 F Pulse Rate 79 91 Respiratory Rate 16 Blood Pressure 120/78 140/85 H Pulse Oximetry 98 Oxygen Delivery Method Room Air BMI result Body Mass Index 23.8 Labs Results: 05/21/22 05:10 05/21/22 05:10 Imaging Radiology Impressions: ITS Impressions Head CT 05/21/22 16:12 IMPRESSION: No acute intracranial pathology. Medications Medications Current Medications Acetaminophen (Acetaminophen 325 Mg Tablet) 650 mg PO Q6H PRN PRN Reason: Headache/Pain Mild Scale (1-3) Last Admin: 05/21/22 22:13 Dose: 650 mg Al Hydroxide/Mg Hydroxide (Magnesium Hydrox/Alum Hydrox 30 Ml Oral.Susp) 30 ml PO Q6H PRN PRN Reason: Heartburn/Nausea Diphenhydramine HCl (Diphenhydramine Hcl 25 Mg Tablet) 50 mg PO Q4H PRN PRN Reason: agitation Last Admin: 05/27/22 09:20 Dose: 50 mg Estradiol (Estradiol 0.5 Mg Tablet) 2 mg PO DAILY LEANNE Last Admin: 05/27/22 08:02 Dose: 2 mg Haloperidol (Haloperidol 5 Mg Tablet) 5 mg PO Q4H PRN PRN Reason: agitation Last Admin: 05/27/22 09:19 Dose: 5 mg Hydroxyzine HCl (Hydroxyzine Hcl 25 Mg Tablet) 25 mg PO DAILY PRN PRN Reason: Anxiety Last Admin: 05/25/22 20:33 Dose: 25 mg Hydroxyzine HCl (Hydroxyzine Hcl 25 Mg Tablet) 25 mg PO Q4H LEANNE Last Admin: 05/27/22 13:03 Dose: 25 mg Magnesium Hydroxide (Milk Of Magnesia 30 Ml Oral.Susp) 30 ml PO DAILY PRN PRN Reason: Constipation Risperidone (Risperidone 1 Mg Tablet) 1 mg PO BID LEANNE Last Admin: 05/27/22 08:02 Dose: 1 mg Spironolactone (Spironolactone 25 Mg Tablet) 100 mg PO DAILY LEANNE; Protocol Last Admin: 05/27/22 08:02 Dose: 100 mg Trazodone HCl (Trazodone Hcl 50 Mg Tablet) 50 mg PO BEDTIME PRN PRN Reason: Insomnia Last Admin: 05/25/22 20:33 Dose: 50 mg Allergies Allergies Allergy/AdvReac Type Severity Reaction Status Date / Time No Known Allergies Allergy Verified 05/15/22 17:05 Assessment & Plan Assessment & Plan (1) Psychotic disorder: Status: Acute Code(s): F29 - Unspecified psychosis not due to a substance or known physiological condition (2) Fragile X syndrome: Status: Acute Code(s): Q99.2 - Fragile X chromosome (3) Intellectual disability: Status: Acute Code(s): F79 - Unspecified intellectual disabilities (4) Psychogenic nonepileptic seizure: Status: Acute Code(s): 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 Blank presents for disorganized behavior in the community. Patient a poor historian as continually having nonepileptic seizures on the unit is selectively mute (patient communicating with staff during seizure-episode). Crisis note reports that patient was brought to the ED, found wandering the neighborhood, knocking on neighbor's doors and saying that someone is trying to cut off her boyfriend's feet. Whom she reported to staff that she got a phone call from her boyfriend that he was at a greenhouse and afraid someone was going to cut his feet so she went to the greenhouse looking for him. She said she saw him in the house screaming but national van owner operator of the house made her leave. Patient did not have insight to understand that her boyfriend was in his own home at this time. Some mention of auditory and visual hallucinations. -admitted for disorganized behavior and new-onset psychotic symptoms in the community -patient hit head during pseudo seizure; head CT unremarkable -UDS negative Differential/thought process -Currently still unclear as to what is going on with patient. Patient remains with delusional thoughts. Reportedly there is no other history at all of psychotic symptoms. -Maybe some hx of manic behavior? Mother reports that for a few months while living there, patient would leave at 3 in the morning and get back at 1 in the morning every night. -UDS done late but negative for drug abuse; patient has no history of drug abuse. However there have been some concerns for explantation in the community though this is not confirmed -nonepileptic seizures HOWEVER patient has fragile X syndrome which carries risk of seizure disorder; EEG done; need to r/o actual epileptic seizures as it's possible for patient have both epileptic and nonepileptic PLAN: CV q 5 min checks (has not been having non-epileptic seizures) EEG results pending Started on Risperdal 1 mg b.i.d. Ativan being tapered; (started due to frequent nonepileptic seizures) Holding Wellbutrin for now Will continue to gather collateral 05/24/22- Continue current plan. 05/25/22- reviewed EEG, no plans to medication, pt is pleasantly psychotic 05/26/22- no changes, no behavioral or mood concerns 05/27/11- Continue current plan. Discharge 05/28/22. I spent minutes with the patient and/or on the patient floor today, greater than?50% of which was spent counseling/coordinating care. Patient educated on: therapeutic strategies Informed Consent: understands and further education needed Reason for contiued inpatient stay Substantial Risk for: stable for discharge
[2022-05-27 22:00] VITALS: BP 120/71; PULSE 78; TEMP 36.6; O2SAT 98
[2022-05-28] MEDS: hydrOXYzine HCL 25 MG TABLET PO ×3 (06:45→13:24)
[2022-05-28 07:45] VITALS: BP 122/60; PULSE 87; RESP 16; TEMP 36.7; O2SAT 98
[2022-05-28] MEDS: risperiDONE 1 MG TABLET PO (09:05)
[2022-05-28] MEDS: estradioL 0.5 MG TABLET 2 MG PO (09:05)
[2022-05-28] MEDS: Spironolactone 25 MG TABLET 100 MG PO (09:05)
--- NOTE | 2022-05-28 16:58 | PM.PSYDC ---
DS: Providers Provider Date of Service: 05/28/22 Date of admission: 05/21/22 11:57 Date of discharge: 05/28/22 Primary care physician: Unknown Physician Admitting clinician: Tres Strange Attending physician on admission: Tres Strange Consults: 05/21/22 15:42 Consult to Neurology Stat Consulting Provider: [facility] Reason for consultation: Seizure vs Pseudoseizure Has provider been notified: Yes Attending physician on discharge: Bam Tate Discharging clinician: Keke Canela DS: Diagnosis Discharge Diagnosis (1) Psychotic disorder: Status: Acute (2) Fragile X syndrome: Status: Acute (3) Intellectual disability: Status: Acute (4) Psychogenic nonepileptic seizure: Status: Acute DS: Medications Discharge Medications Home Medications: Previous Rx's Medication Instructions Recorded estradiol 2 mg tablet 1 tab PO DAILY #30 tabs 05/27/22 hydroxyzine HCl 25 mg tablet 25 mg PO BEDTIME #30 tabs 05/27/22 risperidone 1 mg tablet 1 mg PO BID #60 tabs 05/27/22 spironolactone 100 mg tablet 1 tab PO DAILY #30 tabs 05/27/22 Mental Status Exam Mental Status Exam Patient Appearance: Appropriate Patient Orientation: Person, Place and Situation Level of Consciousness: Alert Patient Behavior: Appropriate, Talkative and Distractible Mood Description: Constricted Affect Description: Constricted Patient Cognition Impaired: Yes Ability to Follow Directions: Good Speech Pattern: Difficulty Finding Words, Spontaneous Speech, Soft-Spoken, Delayed and Long Pauses Memory Description: Episodic Impaired Hallucinations: None (denied) Thought Process: Distracted and Slowed Thinking Thought Content: positive for [place], positive for Slowed Thinking and positive for Suicidal Ideation (denies) Depressive Symptoms: Crying Spells Judgement: Fair Data Data Completed and Pending Completed studies during hospitalization [Text1]: 05/21/22 05/22/22 05/22/22 16:45 07:42 07:42 Estimat Average Glucose 94 Hemoglobin A1c % 4.9 Magnesium 1.8 Triglycerides 81 Cholesterol 125 LDL Cholesterol, Calc 69 HDL Cholesterol 40 Vitamin B12 Folate TSH 0.66 Free T4 0.93 Prolactin 29.3 H Urine Color Urine Appearance Urine pH Ur Specific [place] Urine Protein Urine Glucose (UA) Urine Ketones Urine Blood Urine Nitrite Ur Leukocyte Esterase Urine RBC Urine WBC Ur Squamous Epith Cells Urine Bacteria Urine Mucus Urine Opiates Screen Urine Fentanyl Screen Ur Barbiturates Screen Ur Phencyclidine Scrn Ur Amphetamines Screen U Benzodiazepines Scrn Urine Cocaine Screen U Marijuana (THC) Screen 05/22/22 05/22/22 05/22/22 07:42 15:10 15:10 Estimat Average Glucose Hemoglobin A1c % Magnesium Triglycerides Cholesterol LDL Cholesterol, Calc HDL Cholesterol Vitamin B12 309 Folate 9.7 TSH Free T4 Prolactin Urine Color YELLOW Urine Appearance CLEAR Urine pH 6.0 Ur Specific [place] >= 1.030 H Urine Protein NEG Urine Glucose (UA) NEG Urine Ketones NEG Urine Blood NEG Urine Nitrite NEG Ur Leukocyte Esterase NEG Urine RBC 0-2 Urine WBC 0-2 Ur Squamous Epith Cells NONE Urine Bacteria NONE Urine Mucus 1+ Urine Opiates Screen Not Detected Urine Fentanyl Screen Not Detected Ur Barbiturates Screen Not Detected Ur Phencyclidine Scrn Not Detected Ur Amphetamines Screen Not Detected U Benzodiazepines Scrn Not Detected Urine Cocaine Screen Not Detected U Marijuana (THC) Screen Not Detected Imaging Diagnostic Imaging Impressions Head CT 05/21/22 16:12 IMPRESSION: No acute intracranial pathology. DS: Summary Hospital Course Hospital Course: 36 yo transgender male to female (Emiliana is pt's preferred name) presented with exacerbation of psychosis and psychogenic seizure disorder. Pt also with intellectual disability. Pt initially was anxious and fearful about being on the unit, this seemed to increase her seizure activity which decreased as she became more familiar with the team, her peer group and the milieu in general. By the end of her admission she was attending groups, socializing with peers, appearing much more comfortable with the environment (hx of being treated poorly in community) and seizure activity subsided. Risperdal was initiated and tolerated, Hydroxyzine was evaluated and dosing was adjusted. Time spent discussing smoking cessation with patient: 3 to 10 minutes Status at Discharge Functional status at discharge: independent ambulation Overall status at discharge: patient is back to baseline Time Spent with Patient Time attestation: Total time spent providing and/or coordinating discharge services: 40 Time spent: Greater than 30 minutes Discharge Plan Discharge Patient Disposition: Home, Self-Care Discharge Diagnosis: Psychosis NOS Psychogenic Seizure Disorder Intellectual Disability Fragile X Syndrome Referrals: Psych Prescriber: Maya Burns ([facility]) [Other] - 06/17/22 10:00 am (Telehealth ) Therapist:Nestor Johns([facility] for [place]) [Other] - 06/03/22 1:30 pm (In office ) Day Treatment: [facility] ([place]) [Other] - 05/29/22 9:00 am (Transportation will pick you up Friday morning, 05/29, to re-start. ) Catarino Wu PA [Physician [facility]] - 06/04/22 3:20 pm ([facility]) Physician,Unknown J [Primary Care Provider] - 1 Week Discharge Medications: New risperidone 1 mg Tablet 1 mg PO BID Qty: 60 0RF hydroxyzine HCl 25 mg tablet 25 mg PO BEDTIME Qty: 30 0RF Continued spironolactone 100 mg tablet 1 tab PO DAILY Qty: 30 0RF estradiol 2 mg tablet 1 tab PO DAILY Qty: 30 0RF Discontinued hydroxyzine pamoate 25 mg capsule 1 cap PO DAILY PRN (Reason: Anxiety) bupropion HCl 300 mg tablet extended release 24 hr 1 tab PO DAILY Discharge Orders: Discharge Order (Routine); Ordered 05/28/22 Ordered By: Keke Canela Diet: Advance to usual diet Activity on Discharge: As tolerated Stand Alone Forms: Patient Portal Discharge page, Community Support Care Plan Goals: Mood stabilization Health Concerns: Psychosis Intellectual Disability Psychogenic Seizure Disorder Fragile X Syndrome Plan of Treatment: Attend follow up appointments Take medications as directed Practice coping skills Crisis Team as needed [phone] Call and or return as needed Assessment: non-psychotic, non-suicidal Discharge Date/Time: 05/28/22 17:14
== END 2022-05-28 17:14 | disposition home or self-care (01) | DRG 885 ==
LOC: HO.ED 06:38 → HO.PM5 12:35
PROVIDERS: Clinical Nurse Specialist Psychiatric/Mental Health, Adult; Psychiatry & Neurology Psychiatry; Admitting Provider Psychiatry & Neurology Psychiatry; Emergency Provider Emergency Medicine; Visit Provider Psychiatry & Neurology Psychiatry
DX: F29 Unspecified psychosis not due to a substance or known physiological condition (principal); F44.5 Conversion disorder with seizures or convulsions; Q99.2 Fragile X chromosome; F79 Unspecified intellectual disabilities; F64.0 Transsexualism; Z20.822 Contact with and (suspected) exposure to COVID-19; Z79.3 Long term (current) use of hormonal contraceptives; Z79.899 Other long term (current) drug therapy
CPT/HCPCS: 36415; 70450; 80053; 80061; 80143; 80179; 80307; 81001; 81003; 82077; 82607; 82746; 82947; 83036; 83735; 84146; 84439; 84443; 85025; 87635; 92950; 95816; 99285; J2060; Q0163

== ENCOUNTER 2022-05-29 10:19 | Emergency (ER) | payer MEDICARE, MEDICAID, SELFPAY ==
[2022-05-29 11:41] VITALS: BP 121/78; PULSE 88; O2SAT 100; BMI 23.7
[2022-05-29 11:44] VITALS: BP 121/72; PULSE 94; RESP 14; TEMP 36.7; O2SAT 98
[2022-05-29 11:52] LABS: MANUAL DIFF FLAG NO
[2022-05-29 11:56] LABS: Basophils Percent Auto 0.5 % (0-2); Eosinophils Percent Auto 0.2 % (0-4); Hematocrit 33.2 % (42.0-52.0); Hemoglobin 11.2 g/dl (14.0-18.0); Imm Gran Abs Auto 0.01 X10*3/uL (0.00-0.03); Imm Gran Pct Auto 0.2 % (0.0-0.4); Lymphocytes Percent Auto 22.5 % (20-40); Mean Corpuscular HGB Conc 33.7 g/dl (31.0-36.0); Mean Corpuscular Hemoglobin 29.2 pg (27.0-33.0); Mean Corpuscular Volume 86.7 fL (80.0-98.0); Mean Platelet Volume 8.6 fL (9.4-12.4); Monocytes Absolute Auto 0.3 X10*3/uL (0.1-1.2); Monocytes Percent Auto 6.6 % (2-11); Neutrophils Absolute Auto 3.1 x10*3/uL (2.0-8.3); Platelet Count 305 X10*3/uL (160-400); Red Blood Count 3.83 X10*6/uL (4.60-5.80); Red Cell Distribution Width 14.5 % (11.0-16.0); White Blood Count 4.4 X10*3/uL (4.8-10.8)
[2022-05-29 13:49] LABS: Anion Gap 12 (12-20); Blood Urea Nitrogen 16 mg/dL (9-16); Calcium 9.2 mg/dL (8.4-10.2); Carbon Dioxide 24 mmol/L (22-29); Chloride 106 mmol/L (96-108); Creatinine Clr Calc Pharmacy 106.9; Estimated Glomerular Filt Rate > 60; Glucose Random 122 mg/dL (60-115); Sodium 138 mmol/L (135-145)
== END 2022-05-29 16:31 | disposition left against medical advice (07) ==
PROVIDERS: Emergency Provider Emergency Medicine
DX: R10.9 Unspecified abdominal pain (principal); Z79.899 Other long term (current) drug therapy
CPT/HCPCS: 36415; 80048; 85025; 99282; 99283